=== PATIENT | male | born 1965 | race Two or more races ===

== ENCOUNTER 2020-04-15 17:59 | Inpatient (IN) | payer SELFPAY ==
[~2020-04-15] VITALS: Ht 172.7 cm; Wt 72.4 kg
--- NOTE | 2020-04-15 18:34 | NUR ---
THIS IS A 54 YO M W/ C/O PAINFUL LT LEG RASH STARTING FROM ANKLE W/ RADIATION UP TO GROIN. PT REPORTS THAT THE RASH APPEARED SUDDENLY ON TUESDAY. PT ALSO HAS HAS C/O BODY ACHES, NAUSEA AND INTERMITTENT FEVERS. PT REPORTS MILD PRESSURE UNDER UMBILICAL NEAR OLD SURGICAL SITE BUT DENIES PAIN. PT DENIES VOMITING/CP/SOB. PT RESTING ON GURNEY W/ CALL LIGHT IN REACH AND SIDE RAILS UPX2. CONNECTED TO ALL MONITORING. RESP EVEN AND UNLABORED, NADN. AWAITING ED EVAL.
--- NOTE | 2020-04-15 19:03 | NUR ---
REPORT GIVEN TO RAJINDER MENDES. PT RESTING ON GURNEY W/ CALL LIGHT IN REACH, RESP EVEN AND UNLABORED, WADE. PT AWAITING ED EVAL.
--- NOTE | 2020-04-15 19:08 | NUR ---
Report received from CINTHYA Gonzales. This RN to assume care. Awaiting orders.
[2020-04-15] MEDS ORDERED: ACETAMINOPHEN 500 MG TABLET PO ONE (19:30)
[2020-04-15] MEDS ORDERED: CEFTRIAXONE PMX 1GM/50ML 50 ML IVPB ONE (19:30)
[2020-04-15] MEDS ORDERED: SODIUM CHLORIDE FLUSH 10ML SYR IVF ONE (19:30)
[2020-04-15] MEDS ORDERED: ACETAMINOPHEN 500 MG TABLET ONE (19:33)
[2020-04-15] MEDS ORDERED: CEFTRIAXONE PMX 1GM/50ML 50 ML ONE (19:33)
[2020-04-15 19:50] LABS: MEAN CORPUSCULAR HEMOGLOBIN 28.4 pg (27.5-34.5); MEAN CORPUSCULAR HGB CONC 32.7 g/dL (33.2-36.2); MEAN CORPUSCULAR VOLUME 86.7 fL (81-97); MEAN PLATELET VOLUME 9.1 fL (7.4-10.4); PLATELET COUNT 189 x10^3/uL (130-400); RED BLOOD COUNT 5.46 x10^6/uL (4.38-5.82); RED CELL DISTRIBUTION WIDTH 14.6 % (9.4-14.8)
[2020-04-15 19:53] LABS: ALANINE AMINOTRANSFERASE 25 U/L (12-78); ANION GAP 5 mmol/L (5-15); CALCIUM 8.5 mg/dL (8.5-10.1); CHLORIDE 105 mmol/L (98-107); CREATININE 1.09 mg/dL (0.7-1.3)
[2020-04-15 19:56] LABS: ALKALINE PHOSPHATASE 77 U/L (45-117); BILIRUBIN,TOTAL 1.1 mg/dL (0.2-1.0); TOTAL PROTEIN 7.9 g/dL (6.4-8.2)
[2020-04-15 20:44] LABS: MD YES
[2020-04-15 20:48] LABS: LYMPH#(MANUAL) 0.64 x10^3/uL (1-3.4); LYMPHS% (MANUAL) 5 % (22-44); MONOS#(MANUAL) 0.89 x10^3/uL (0.3-2.7); MONOS% (MANUAL) 7 % (2-9); REACTIVE LYMPHS # (MANUAL) 0.38 x10^3/uL (0-0); REACTIVE LYMPHS % (MANUAL) 3 % (0-0); SEGS% (MANUAL) 85 % (42-75)
[2020-04-15 20:50] LABS: ANISOCYTOSIS 1+
[2020-04-15 20:52] LABS: <PLATELET ESTIMATE> ADEQUATE; LARGE PLATELETS 1+; SMUDGE CELLS 1+
[2020-04-15] MEDS ORDERED: hydrALAzine 20 MG/ML, 1ML IVPush PRN (21:30)
[2020-04-15] MEDS ORDERED: DOCUSATE 100 MG CAPSULE PO PRN (21:30)
[2020-04-15] MEDS: HEPARIN 5,000 UNITS/ML, 1ML SQ SCH (21:30)
[2020-04-15] MEDS ORDERED: ONDANSETRON 2MG/ML, 2ML IVPush PRN (21:30)
[2020-04-15] MEDS ORDERED: TRAZODONE 50MG TABLET PO PRN (21:30)
[2020-04-15] MEDS ORDERED: morphine SULFATE 10 MG/ML, 1ML IVPush PRN (21:30)
[2020-04-15] MEDS ORDERED: SODIUM CHLORIDE FLUSH 10ML SYR IVF PRN (21:30)
[2020-04-15] MEDS ORDERED: LISI-170 PO (21:57)
--- NOTE | 2020-04-15 21:59 | NUR ---
Report given to CINTHYA Sebastian. Patient transferred to room [id number]. Med rec complete.
[2020-04-15 22:23] VITALS: BP 149/93
[2020-04-15] MEDS: SODIUM CHLORIDE 0.9% 1,000 ML IV SCH (22:30)
[2020-04-15] MEDS: PIPERACILLIN/TAZO/PMX 4.5GM 100 ML IVPB SCH (23:14)
[2020-04-16 00:53] VITALS: BP 149/93
[2020-04-16] MEDS: SODIUM CHLORIDE 0.9% 1,000 ML IV SCH ×3 (05:06→23:03)
[2020-04-16] MEDS: PIPERACILLIN/TAZO/PMX 4.5GM 100 ML IVPB SCH ×4 (05:28→23:03)
[2020-04-16] MEDS: HEPARIN 5,000 UNITS/ML, 1ML SQ SCH ×3 (05:28→23:03)
[2020-04-16 05:34] LABS: ANION GAP 6 mmol/L (5-15); CALCIUM 8.4 mg/dL (8.5-10.1); CHLORIDE 108 mmol/L (98-107)
[2020-04-16 06:03] LABS: MEAN CORPUSCULAR HEMOGLOBIN 28.2 pg (27.5-34.5); MEAN CORPUSCULAR HGB CONC 32.4 g/dL (33.2-36.2); MEAN CORPUSCULAR VOLUME 87.1 fL (81-97); MEAN PLATELET VOLUME 9.4 fL (7.4-10.4); PLATELET COUNT 170 x10^3/uL (130-400); RED BLOOD COUNT 5.06 x10^6/uL (4.38-5.82); RED CELL DISTRIBUTION WIDTH 14.6 % (9.4-14.8)
[2020-04-16 06:47] LABS: BASOPHILS # (AUTO) 0.01 x10^3/uL (0-0.1); BASOPHILS % (AUTO) 0 % (0-1); EOSINOPHILS # (AUTO) 0.04 x10^3/uL (0-0.4); EOSINOPHILS % (AUTO) 0 % (1-7); LYMPHOCYTES % (AUTO) 7 % (22-44); MD SCAN; MONOCYTES # (AUTO) 0.79 x10^3/uL (0.2-0.8); MONOCYTES % (AUTO) 7 % (2-9); NEUTROPHILS # (AUTO) 9.83 x10^3/uL (1.8-6.8); NEUTROPHILS % (AUTO) 86 % (42-75)
[2020-04-16 07:12] VITALS: BP 145/89
[2020-04-16 08:52] VITALS: BP 152/82
[2020-04-16] MEDS: ACETAMINOPHEN 325 MG TABLET PO PRN ×2 (08:54→16:47)
[2020-04-16] MEDS: LISINOPRIL 20 MG TABLET PO SCH (08:55)
[2020-04-16 13:48] VITALS: BP 132/83
[2020-04-16 18:36] VITALS: BP 123/69
[2020-04-17 00:50] VITALS: BP 126/76
[2020-04-17 05:15] LABS: BASOPHILS # (AUTO) 0.01 x10^3/uL (0-0.1); BASOPHILS % (AUTO) 0 % (0-1); EOSINOPHILS # (AUTO) 0.04 x10^3/uL (0-0.4); EOSINOPHILS % (AUTO) 1 % (1-7); LYMPHOCYTES # (AUTO) 0.72 x10^3/uL (1-3.4); LYMPHOCYTES % (AUTO) 9 % (22-44); MD NO; MEAN CORPUSCULAR HEMOGLOBIN 28.8 pg (27.5-34.5); MEAN CORPUSCULAR HGB CONC 32.7 g/dL (33.2-36.2); MEAN CORPUSCULAR VOLUME 87.9 fL (81-97); MEAN PLATELET VOLUME 8.8 fL (7.4-10.4); MONOCYTES # (AUTO) 0.59 x10^3/uL (0.2-0.8); MONOCYTES % (AUTO) 7 % (2-9); NEUTROPHILS # (AUTO) 6.57 x10^3/uL (1.8-6.8); NEUTROPHILS % (AUTO) 83 % (42-75); PLATELET COUNT 184 x10^3/uL (130-400); RED BLOOD COUNT 4.66 x10^6/uL (4.38-5.82)
[2020-04-17 05:16] LABS: ANION GAP 6 mmol/L (5-15); CHLORIDE 107 mmol/L (98-107); CREATININE 0.96 mg/dL (0.7-1.3)
[2020-04-17] MEDS: PIPERACILLIN/TAZO/PMX 4.5GM 100 ML IVPB SCH ×4 (05:40→23:22)
[2020-04-17 06:47] VITALS: BP 134/88
[2020-04-17] MEDS: HEPARIN 5,000 UNITS/ML, 1ML SQ SCH ×2 (07:19→15:15)
[2020-04-17 10:02] VITALS: BP 138/76
[2020-04-17] MEDS: LISINOPRIL 20 MG TABLET PO SCH (10:03)
[2020-04-17] MEDS: SODIUM CHLORIDE 0.9% 1,000 ML IV SCH (10:18)
[2020-04-17 12:15] VITALS: BP 148/92
[2020-04-17] MEDS: OXYcodone IR 5MG TABLET PO PRN ×2 (15:42→20:19)
[2020-04-17] MEDS ORDERED: OXYcodone IR 5MG TABLET PO PRN (16:00)
[2020-04-17] MEDS: ENOXAPARIN 40 MG/0.4 ML SQ SCH (17:46)
[2020-04-17 19:40] VITALS: BP 146/82
[2020-04-18] MEDS: OXYcodone IR 5MG TABLET PO PRN ×2 (01:42→12:26)
[2020-04-18 01:50] VITALS: BP 127/75
[2020-04-18] MEDS: PIPERACILLIN/TAZO/PMX 4.5GM 100 ML IVPB SCH ×4 (05:14→23:27)
[2020-04-18 06:04] LABS: ANION GAP 6 mmol/L (5-15); CALCIUM 8.7 mg/dL (8.5-10.1); CHLORIDE 104 mmol/L (98-107); CREATININE 1.09 mg/dL (0.7-1.3)
[2020-04-18 06:15] LABS: BASOPHILS # (AUTO) 0.02 x10^3/uL (0-0.1); BASOPHILS % (AUTO) 0 % (0-1); EOSINOPHILS # (AUTO) 0.07 x10^3/uL (0-0.4); EOSINOPHILS % (AUTO) 1 % (1-7); LYMPHOCYTES # (AUTO) 0.99 x10^3/uL (1-3.4); LYMPHOCYTES % (AUTO) 16 % (22-44); MD NO; MEAN CORPUSCULAR HEMOGLOBIN 28.9 pg (27.5-34.5); MEAN CORPUSCULAR HGB CONC 33.4 g/dL (33.2-36.2); MEAN CORPUSCULAR VOLUME 86.4 fL (81-97); MEAN PLATELET VOLUME 8.2 fL (7.4-10.4); MONOCYTES # (AUTO) 0.56 x10^3/uL (0.2-0.8); MONOCYTES % (AUTO) 9 % (2-9); NEUTROPHILS # (AUTO) 4.62 x10^3/uL (1.8-6.8); NEUTROPHILS % (AUTO) 74 % (42-75); PLATELET COUNT 222 x10^3/uL (130-400); RED BLOOD COUNT 4.68 x10^6/uL (4.38-5.82); RED CELL DISTRIBUTION WIDTH 15.1 % (9.4-14.8)
[2020-04-18 07:40] VITALS: BP 137/79
[2020-04-18] MEDS: LISINOPRIL 20 MG TABLET PO SCH (08:20)
[2020-04-18 12:15] VITALS: BP 119/73
[2020-04-18] MEDS: ENOXAPARIN 40 MG/0.4 ML SQ SCH (18:13)
[2020-04-18 19:38] VITALS: BP 115/69
[2020-04-19 01:54] VITALS: BP 105/68
[2020-04-19] MEDS: PIPERACILLIN/TAZO/PMX 4.5GM 100 ML IVPB SCH ×3 (05:41→17:19)
[2020-04-19 07:32] VITALS: BP 115/74
[2020-04-19] MEDS: LISINOPRIL 20 MG TABLET PO SCH (08:21)
[2020-04-19] MEDS: OXYcodone IR 5MG TABLET PO PRN ×2 (11:22→20:09)
[2020-04-19 15:15] VITALS: BP 108/70
[2020-04-19] MEDS: ENOXAPARIN 40 MG/0.4 ML SQ SCH (17:19)
[2020-04-19] MEDS: ACETAMINOPHEN 325 MG TABLET PO PRN (20:09)
[2020-04-19 20:21] VITALS: BP 129/81
[2020-04-20] MEDS: OXYcodone IR 5MG TABLET PO PRN ×4 (00:09→23:34)
[2020-04-20] MEDS: PIPERACILLIN/TAZO/PMX 4.5GM 100 ML IVPB SCH ×5 (00:09→23:33)
[2020-04-20] MEDS: ACETAMINOPHEN 325 MG TABLET PO PRN ×3 (00:09→23:34)
[2020-04-20 03:55] VITALS: BP 138/79
[2020-04-20 07:18] VITALS: BP 125/72
[2020-04-20] MEDS: LISINOPRIL 20 MG TABLET PO SCH (07:49)
[2020-04-20 15:29] VITALS: BP 131/77
[2020-04-20] MEDS: ENOXAPARIN 40 MG/0.4 ML SQ SCH (17:50)
[2020-04-20] MEDS ORDERED: AMOX1TAB64 PO (18:15)
[2020-04-20] MEDS ORDERED: OXYC5TAB3 PO (18:15)
[2020-04-20 21:32] VITALS: BP 143/79
[2020-04-21 01:59] VITALS: BP 109/70
[2020-04-21] MEDS: PIPERACILLIN/TAZO/PMX 4.5GM 100 ML IVPB SCH ×2 (05:29→11:30)
[2020-04-21 08:48] VITALS: BP 123/76
[2020-04-21] MEDS: LISINOPRIL 20 MG TABLET PO SCH (09:17)
== END 2020-04-21 12:17 | disposition home or self-care (01) | DRG 871 ==
LOC: ED 21:16 → EDIP 21:17 → ED 21:37 → 3N 22:21 → DCLOUNGE 04-21 12:16
PROVIDERS: ADMIT Student in an Organized Health Care Education/Training Program; ATTEND Internal Medicine
DX: A41.9 Sepsis, unspecified organism (principal); N17.0 Acute kidney failure with tubular necrosis; E87.1 Hypo-osmolality and hyponatremia; L03.116 Cellulitis of left lower limb; F17.200 Nicotine dependence, unspecified, uncomplicated; I10 Essential (primary) hypertension; R65.20 Severe sepsis without septic shock
CPT/HCPCS: 36415; 74176; 80048; 80053; 83605; 83735; 84145; 85025; 86140; 87040; 93005; 96374; 99285; G0378; J0696; J1644; J1650; J2543; J2270; J7030